=== PATIENT | female | born 1985 | race Asian ===

== ENCOUNTER 2016-12-02 18:31 | Emergency (ER) | payer SELFPAY ==
[~2016-12-02] VITALS: Ht 160 cm; Wt 54.4 kg
[2016-12-02 18:59] VITALS: BP 117/80
[2016-12-02] MEDS ORDERED: Bacitracin Oint UD TOPIC ONE (19:00)
--- NOTE | 2016-12-02 19:17 | Emergency Room Report ---
History of Present Illness General Chief Complaint: Laceration Source: Patient Present Illness HPI 31-year-old female presents to the emergency department complaining of pain to the right forearm in addition to right thigh and hip status post mechanical trip and fall on asphalt and sustained an abrasion. Patient's issues mother date with tetanus vaccination. Patient reports pain is 5/ 10 in severity with some mild bruising to the right thigh. Denies taking blood thinning medications. Denies bony tenderness. Denies hitting her head or loss of consciousness. Denies CP, Palpitations, LOC, AMS, dizziness, Changes in Vision, Sensation, paresthesias, or a sudden severe headache. Allergies: Coded Allergies: No Known Allergies (Unverified , 12/02/16) Patient History Past Medical History: see triage record Past Surgical History: none Pertinent Family History: none Last Menstrual Period: 11/30/16 Now: No Reviewed Nursing Documentation: PMH: Agreed, PSxH: Agreed Nursing Documentation-PMH Past Medical History: No Stated History Review of Systems All Other Systems: negative except mentioned in HPI Physical Exam Vital Signs Date Time Temp Pulse Resp B/P Pulse Ox O2 Delivery O2 Flow Rate FiO2 12/02/16 18:49 97.5 74 18 117/80 97 Room Air Sp02 EP Interpretation: reviewed, normal General Appearance: no apparent distress, alert, GCS 15, non-toxic Head: normocephalic, atraumatic Eyes: bilateral eye PERRL, bilateral eye normal inspection ENT: hearing grossly normal, normal pharynx, no angioedema, normal voice Neck: full range of motion, supple/symm/no masses Respiratory: lungs clear, normal breath sounds, speaking full sentences Cardiovascular #1: regular rate, rhythm, no edema Gastrointestinal: no guarding Musculoskeletal: back normal, gait/station normal, normal range of motion, tender - superficial lateral right thigh ttp with bruising noted, no deep bony ttp. Neurologic: alert, oriented x3, responsive, motor strength/tone normal, sensory intact, speech normal Psychiatric: judgement/insight normal, memory normal, mood/affect normal Skin: normal color, no rash, warm/dry, well hydrated, abrasions - right forearm abrasion approx 7 cm in length, 1 cm anterior right knee abrasion, and right thigh contusion. Medical Decision Making PA Attestation Dr. Krishnamurthy is my supervising Physician whom patient management has been discussed with. Diagnostic Impression: Primary Impression: Abrasion forearm Additional Impression: Contusion Qualified Codes: S80.11XA - Contusion of right lower leg, initial encounter ER Course 31-year-old female presents to the emergency department complaining of pain to the right forearm in addition to right thigh and hip status post mechanical trip and fall on asphalt and sustained an abrasion. Patient's issues mother date with tetanus vaccination. Patient reports pain is 5/ 10 in severity with some mild bruising to the right thigh. Denies taking blood thinning medications. Denies bony tenderness. Denies hitting her head or loss of consciousness. Denies CP, Palpitations, LOC, AMS, dizziness, Changes in Vision, Sensation, paresthesias, or a sudden severe headache. Ddx considered but are not limited to laceration, tendon injury, cellulitis, amputation, abrasion Vital signs: are WNL, pt. is afebrile H&PE are most consistent with: right forearm abrasion approx 7 cm in length, 1 cm anterior right knee abrasion, and right thigh contusion. ORDERS: none required at this time, the diagnosis is clinical ED INTERVENTIONS: -Tetanus vaccine was administered as pt. vaccination status was unknown. - The wound was copiously irrigated with normal saline, and explored for foreign body for which no FB was found. -Bacitracin and sterile dressing is applied. - Patient will be on a flight back home to rest to the tomorrow am. d/w pt. that bruising with most likely progress. d/w pt. that she will be rx'd qty 2 norco for comfort /pain reduction while being seated on affected thigh for long distance flight. DISCHARGE: At this time pt. is stable for d/c to home. Will provide printed patient care instructions, and any necessary prescriptions. Care plan and follow up instructions have been discussed with the patient prior to discharge. Last Vital Signs Date Time Temp Pulse Resp B/P Pulse Ox O2 Delivery O2 Flow Rate FiO2 12/02/16 18:49 97.5 74 18 117/80 97 Room Air Disposition: HOME, SELF-CARE Condition: Stable Scripts Hydrocodone Bit/Acetaminophen 5-325* (NORCO 5-325*) 1 Each Tablet 1 TAB ORAL Q6H Y for For Pain, #2 TAB 0 Refills Prov: Breana Velazquez 12/02/16 Bacitracin/Polymyxin B Sulfate (BACITRACIN-POLYMYXIN OINTMENT) 28.35 Gm Oint...g. 1 APPLIC TP BID, #28.3 GM Prov: Breana Velazquez 12/02/16 Patient Instructions: Abrasion, [id number] Additional Instructions: Take medications as directed. Follow up with a Primary Care Provider in 3-5 days, even if your symptoms have resolved. --Please review list of primary care clinics, if you do not already have a primary care provider Return sooner to ED if new symptoms occur, or current symptoms become worse. - Please note that this Emergency Department Report was dictated using [employer] vendor quality technology software, occasionally this can lead to erroneous entry secondary to interpretation by the dictation equipment. Breana Velazquez Dec 02, 2016 19:17
[2016-12-02] MEDS ORDERED: BACITRACIN-P28.35 GM TP (19:18)
[2016-12-02] MEDS ORDERED: NORCO 5-325 TA1 EACH ORAL (19:24)
[2016-12-02 19:28] VITALS: BP 117/80
[2016-12-02] MEDS ORDERED: Tetanus/Diptheria/Pertussis Vaccine 0.5ml Syr IM ONE (19:30)
== END 2016-12-02 19:28 | disposition home or self-care (01) ==
LOC: EMR 19:00
DX: S50.811A Abrasion of right forearm, initial encounter (principal); S80.01XA Contusion of right knee, initial encounter; W01.0XXA Fall on same level from slipping, tripping and stumbling without subsequent striking against object, initial encounter; Y92.89 Other specified places as the place of occurrence of the external cause; Z23 Encounter for immunization
CPT/HCPCS: 90471; 90715; 96372; 99284